=== PATIENT | female | born 1940 | race Caucasian/White ===

== ENCOUNTER 2017-08-25 12:29 | Inpatient (IN) ==
[2017-08-25] MEDS ORDERED: ALBUTEROL/IPRATROPIUM 2.5mg-0.5mg/3ml NEB AEROSOL PRN (12:47)
--- OUTSIDE RECORDS SUMMARY | 2017-08-25 13:16 | External Medical Summary ---
:1940 Author Organization eClinicalWorks Care Team Providers Name Role Phone Orville Mendoza Provider Role Unavailable Allergies, Adverse Reactions, Alerts Substance Reaction Event Type Minocycline Angioneurotic edema Drug Allergy Sulfa-Trimeth Angioneurotic edema Drug Allergy Penicillin Diarrhea Drug Allergy Metformin HCl CHF Drug Allergy Problems Problem Type Condition Code Onset Dates Condition Status Problem Obesity, unspecified 278.00 Active Problem Hypertension 401.9 Active Problem Non-Hodgkin's lymphoma, unspecified 202.80 Active site, extranodal and solid organ sites Problem Angina Pectoris 413.9 Active Problem s/p stenting, coronary V45.82 Active Problem Cardiomyopathy, Ischemic 414.8 Active Problem Subclavian steal syndrome 435.2 Active Problem Tobacco Addiction 305.1 Active Problem Reflux esophagitis 530.11 Active Problem Carotid Disease 437.9 Active Assessment Subclavian steal syndrome 435.2 Active Assessment Carotid Disease 437.9 Active Assessment s/p stenting, coronary V45.82 Active Assessment Cardiomyopathy, Ischemic 414.8 Active Problem Venous Insufficiency 459.81 Active Problem Hypothyroidism 244.9 Active Assessment Coronary Artery Disease 414.01 Active Problem Diabetes Mellitus, Type II, Not 250.00 Active Stated As Uncontrolled Problem Hyperlipidemia 272.4 Active Problem Coronary Artery Disease 414.01 Active Medications Medication Code Code Instructions Start End Date Status Dosage System Date Levothyroxine [facility] 40015-78 100 micrograms July 21, 1 tablet Sodium 49-07 Orally qd 2013 Tums [facility] 93265-52 500 MG Orally 2 tablets 70-03 [place], [place] [address]-64 25 MG Orally Bid 1 tablet Tartrate 18- [place] [address]-30 Orally qd 1 capsule 041 [place] [address]-40 20 MG Orally Bid July 21, 1 capsule 02-05 Insulin ND 0 [place] [address]-73 81 MG Orally qd 1 tablet 74-68 [place] [address]-91 40 MG Orally At 1 tablet 55-10 [place] [address]-73 400 MG Orally qd May 06, 1 tablet 12-27 Lisinopril [facility] 15084-31 10 MG Orally Bid 1 tablet Clopidogrel [facility] 05001-00 75 MG Orally qd Mar 29, 1 tablet Bisulfate 2012 Ferrous Sulfate [facility] 98010-64 325 mg Orally qd May 19, 1 tablet 50-2013 Ascorbic Acid [facility] 85546-95 1000 MG Orally 1 tablet - qd Procedures Procedure Coding System Code Date Office Visit, Est Pt., Level 4 CPT-4 41736 Dec 21, 2014 Vital Signs Date/Time: Dec 21, 2014 BMI 31.95 Index Weight 163.6 lbs Height 60 in Cardiac Monitoring Heart Rate 80 /min Oximetry 94%RA % Blood Pressure Diastolic 60 mm Hg Blood Pressure Systolic 108 mm Hg Results No Known Results Summary Purpose eClinicalWorks Submission
--- OUTSIDE RECORDS SUMMARY | 2017-08-25 13:16 | External Medical Summary ---
[...] End Date Status Dosage System Date Levothyroxine [facility] 34442-96 100 micrograms July 21, 1 tablet Sodium 49-07 Orally qd 2013 Tums [facility] 62099-60 500 MG Orally 2 tablets 70-03 [place], [place] [address]-77 25 MG Orally Bid 1 tablet Tartrate 18- [place] [address]-43 Orally qd 1 capsule 041 [place] [address]-50 20 MG Orally Bid July 21, 1 capsule 02-05 Insulin ND 0 [place] [address]-06 81 MG Orally qd 1 tablet 74-[place] [address]-39 40 MG Orally At 1 tablet 55-10 [place] [address]-64 400 MG Orally qd May 06, 1 tablet 12-27 Lisinopril [facility] 53414-35 10 MG Orally Bid 1 tablet Clopidogrel [facility] 31540-38 75 MG Orally qd Mar 29, 1 tablet Bisulfate 2012 Ferrous Sulfate [facility] 14840-03 325 mg Orally qd May 19, 1 tablet 50-2013 Ascorbic Acid [facility] 79385-63 1000 MG Orally 1 tablet - qd Procedures Procedure Coding System Code Date Office Visit, Est Pt., Level 4 CPT-4 40793 Dec 21, 2014 Vital Signs Date/Time: Dec 21, 2014 BMI 31.95 Index Weight 163.6 lbs Height 60 in Cardiac Monitoring Heart Rate 80 /min Oximetry 94%RA % Blood Pressure Diastolic 60 mm Hg Blood Pressure Systolic 108 mm Hg Results No Known Results Summary Purpose eClinicalWorks Submission
--- OUTSIDE RECORDS SUMMARY | 2017-08-25 13:16 | External Medical Summary ---
:1940 Author Organization eClinicalWorks Care Team Providers Name Role Phone Orville Mendoza Provider Role Unavailable Allergies No Known Allergies Problems Problem Type Condition Code Onset Dates [...] 530.11 Active Problem Carotid Disease 437.9 Active Problem Venous Insufficiency 459.81 Active Problem Hypothyroidism 244.9 Active Problem Diabetes Mellitus, Type II, Not 250.00 Active Stated As Uncontrolled Problem Hyperlipidemia 272.4 Active Problem Coronary Artery Disease 414.01 Active Medications No Known Medications Results No Known Results Summary Purpose eClinicalWorks Submission
--- OUTSIDE RECORDS SUMMARY | 2017-08-25 13:16 | External Medical Summary ---
:1940 Author Organization eClinicalWorks Care Team Providers Name Role Phone Kelly, Orville Provider Role Unavailable Allergies No Known Allergies [...] Artery Disease 414.01 Active Medications Medication Code System Code Instructions Start End Date Status Dosage Date Nitroglycerin [facility] 43832-273 0.4 MG Sublingual 1 tablet 8-13 prn chest under discomfort tongue Results No Known Results Summary Purpose eClinicalWorks Submission
--- OUTSIDE RECORDS SUMMARY | 2017-08-25 13:16 | External Medical Summary | Continuity of Care Document ---
:1940 Author Organization [facility] Allergies Active Description Code Type Severity Reaction Onset Reported/ Identified Relationship Clinical to Patient Status Yes BACTRIM 51695 Drug Moderate DIFFicult 28390 Aller y 1 gy swallowin g Yes BACTRIM 27926 Drug Moderate N/A 17469 Aller 1 gy Yes METFORMIN Drug Moderate gi upset Aller gy Yes METFORMIN Drug Moderate N/A Aller gy Yes MINOCIN 48896 Drug Moderate N/A 34588 Aller 8 gy Yes MINOCIN 28417 Drug Moderate trouble 39599 Aller swallowin 8 gy g Yes CIPRO 25437 Drug Mild gi upset 16950 Aller and 2 gy diarrhea Yes CIPRO 38411 Drug Mild N/A 58109 Aller 2 gy Yes metformin metfo Drug Moderate DIARRHEA 03/13/2011 rmin Aller AND RENAL gy Yes Penicillins Penic Drug Unknown U 03/13/2011 illin Aller s gy Yes minocycline minoc Drug Mild THROAT 08/15/2011 yclin Aller SWELLING e gy Yes Sulfa Sulfa Drug Mild THROAT 08/15/2011 (Sulfonamide (Sulf Aller SWELLING Antibiotics) onami gy de Antib iotic s) Yes metformin Aller M N/A 12/30/2016 gy Yes minocycline Aller Unknown N/A 12/30/2016 gy Yes Sulfa Aller Unknown N/A 12/30/2016 (Sulfonamide gy Antibiotics) Yes sulfamethoxa Aller M N/A 12/30/2016 zole gy Yes trimethoprim Aller M N/A 12/30/2016 gy Medications Medication Packaging Start Date Stop Date Route Dosage Sig ORAL 08/30/2011 ORAL 50 LACTINEX 6 four times daily PROAIR Inhalation 07/30/2012 Inhalation 8.5 HFA 5 EVERY SIX HOURS ORAL 09/10/2013 ORAL 90 FERROUS SULFATE 5 daily ORAL 03/11/2014 ORAL 30 LEVOTHYROXINE 5 daily SODIUM ORAL 04/05/2014 ORAL 180 OMEPRAZOLE 5 twice daily Oral 06/10/2014 Oral 30 SIMVASTATIN 5 Oral 06/10/2014 Oral 180 METOPROLOL 5 TARTRATE ORAL 06/10/2014 ORAL 90 MAGNESIUM OXIDE daily ORAL 06/27/2014 ORAL 30 TRAMADOL HCL 6 4 times a day ORAL 07/04/2014 ORAL 18 PREDNISONE (SRI) 5 Oral 07/04/2014 Oral 180 OMEPRAZOLE 6 ORAL 07/04/2014 ORAL 90 MAGNESIUM OXIDE 5 daily ORAL 08/09/2014 ORAL 90 BUMETANIDE once each day Oral 09/13/2014 Oral 30 SIMVASTATIN 5 PROAIR Inhalation 10/13/2014 Inhalation 9 HFA ORAL 10/13/2014 ORAL 30 LEVOTHYROXINE 5 daily SODIUM Oral 11/10/2014 Oral 30 SIMVASTATIN 5 Oral 11/10/2014 Oral 180 METOPROLOL 5 TARTRATE Oral 11/21/2014 Oral 30 LEVOTHYROXINE 6 SODIUM Oral 11/21/2014 Oral 90 FERROUS SULFATE 5 Oral 02/23/2015 Oral 90 SIMVASTATIN 6 Oral 03/23/2015 Oral 180 METOPROLOL 6 TARTRATE Oral 04/03/2015 Oral 90 MAGNESIUM OXIDE 6 Oral 04/03/2015 Oral 90 FERROUS SULFATE 6 ORAL 04/17/2015 ORAL 6 ZITHROMAX 6 ORAL 04/17/2015 ORAL 90 MICRO-K 6 daily Oral 04/17/2015 Oral 90 FERROUS SULFATE Oral 04/27/2015 Oral 180 OMEPRAZOLE Oral 07/11/2015 Oral 180 METOPROLOL TARTRATE Oral 07/19/2015 Oral 90 POTASSIUM CHLORIDE ER Oral 07/19/2015 Oral 90 MAGNESIUM OXIDE Oral 07/19/2015 Oral 90 FERROUS SULFATE Oral 07/27/2015 Oral 30 LEVOTHYROXINE SODIUM Oral 07/27/2015 Oral 90 FERROUS SULFATE Oral 08/17/2015 Oral 90 SIMVASTATIN Imdur 09/09/2016 PO 30 mg 09/09/2016 PO 10 mg Prinivil 09/09/2016 Sublingual 0.4 mg Nitroglycerin 09/09/2016 PO 75 mg Clopidogrel 09/09/2016 PO 250 mg Azithromycin .COMPLEX 09/09/2016 Inhalation 6.7 gm Proventil Hfa 90mcg 09/09/2016 Sub-Q 100 Humalog Kwikpen unit/ml U-100 09/09/2016 Sub-Q 100 Basaglar Kwikpen unit/ml U-100 09/16/2016 PO 300 mg Cefdinir Q12H Bumex 10/14/2016 PO 1 mg Tab DAILY 10/14/2016 PO 10 meq Potassium Chloride DAILY Zocor 11/28/2016 PO 40 mg .QD 12/30/2016 PO 10 mg Prednisone .COMPLEX 01/29/2017 PO 100 mcg Synthroid DAILY 02/03/2017 PO 20 mg Prilosec BID 02/26/2017 PO 50 mg Lopressor BID 03/06/2017 TOP 15 gm Nystatin TID 03/06/2017 TOP 15 gm Triamcinolone BID Acetonide 03/06/2017 Inhalation 6.7 gm Proventil Hfa Q6H 90mcg 03/11/2017 PO 325 mg Ferrous Sulfate DAILY Problems Date Dx Attending Type Code Diagnosis Diagnosed By Coded 07/26/2014 Dolores HANNA, Eiad A 787.20 B 09/09/2016 TATUM MARTINEZ DO J40 Bronchitis, not TATUM MARTINEZ DO specified as acute or chronic 09/09/2016 TATUM MARTINEZ DO J44.0 Chronic obstructive TATUM MARTINEZ DO pulmonary disease with acute lower respiratory infection 09/09/2016 TATUM MARTINEZ DO R05 Cough TATUM MARTINEZ DO 09/16/2016 TATUM MARTINEZ DO J18.9 Pneumonia, TATUM MARTINEZ DO unspecified organism 12/30/2016 TATUM MARTINEZ DO M54.5 Low back pain TATUM MARTINEZ DO 12/30/2016 TATUM MARTINEZ DO T63.301A Toxic effect of TATUM MARTINEZ DO unspecified spider venom, accidental (unintentional), initial encounter 12/30/2016 TATUM MARTINEZ DO Z23 Encounter for TATUM MARTINEZ DO immunization Procedures Code [place] [address] [place] SOFT [place], [facility] 12/15/2015 TISSUE NECK WITH CONTRAST [address] CT THORAX LAW, [facility] 12/15/[address] ABD & LAWN, [facility] 12/15/2015 PELVIS WITH CONTRAST [address]15[address] CT SOFT [place], [facility] 12/11/2016 TISSUE NECK WITH CONTRAST [address] CT THORAX [place], [facility] 12/11/[address] ABD & LAWN, [facility] 12/11/2016 PELVIS WITH CONTRAST Results Test Result Range L749.2001 - 12/31/16 11:13 NA - Sodium - AMS 141 mEq/L 135-144 Potassium - AMS 4.1 mEq/L 3.5-5.2 Chloride- AMS 106 mEq/L 99-111 CO2 - Carbon Dioxide-AMS 27 mEq/L 22-31 Anion Gap - AMS 8 mEq/L 3-20 BUN - Blood Urea Nitrogen -AMS 15 mg/dL 10-20 Creatinine - AMS 0.89 mg/dL 0.57-1.11 Glomerular Filtration Rate-AMS > 60 mL/min >60 Glucose - AMS 86 mg/dL 70-99 Calcium - AMS 8.9 mg/dL 8.4-10.2 Bilirubin,Total - AMS 0.4 mg/dL 0.2-1.2 Alkaline Phosphatase - AMS 112 U/L 40-150 AST - Aspartate Amino Transfer 10 U/L 5-34 ALT - AMS 4 U/L 0-55 TP - Total Protein - AMS 7.1 g/dL 6.0-7.6 Albumin Level - AMS 3.2 g/dL 3.4-4.8 Globulin - AMS 3.9 g/dL 1.8-4.0 L908.3165 - 12/31/16 11:13 Free T4 (Free Thyroxine)-AMS 1.2 ng/dL 0.7-1.5 L750.9150 - 12/31/16 11:13 TSH - Thyroid Stim Horm-AMS 1.91 uIU/mL 0.35-4.94 Encounters ACCT No. Visit Discharge Status Pt. Type Provider Facility Loc./Unit Complaint Date/Time [id number] 07/26/2014 07/26/2014 DIS Outpatient Dolores AndresRAD 75 07:05:00 07:05:00 , [facility] [id number] 11/21/2010 Inpatient 94 01:42:00 [id number] 03/29/2010 Inpatient 13 00:36:00 Alida 07/26/2014 ACT Document 07:05:46 Registrati on [id number] 11/08/2015 11/08/2015 CLS Outpatient Gagandeep, 1 10:12:08 23:59:59 Stevie Brown [id number] 03/06/2017 03/06/2017 DIS Outpatient JUAN DO, Medical Med refill 95 14:02:00 15:41:00 TATUM [place] [facility] [id number] 12/31/2016 12/31/2016 DIS Outpatient JUAN PEDERSEN, Medical LAB FOR 45 10:59:00 11:22:00 TATUM [place] [id number] 12/30/2016 12/30/2016 DIS Outpatient JUAN PEDERSEN, Medical 2 spider 13 10:26:00 11:27:00 TATUM [place] bites/ arm [place] and [place] [id number] 09/16/2016 09/16/2016 DIS Outpatient JUAN PEDERSEN, AMB.MPVC pneumonia 47 11:10:00 12:02:00 TATUM follow up [id number] 09/09/2016 09/09/2016 DIS Outpatient JUAN PEDERSEN, Medical cough and 78 14:16:00 15:47:00 TATUM [place] [facility] breathe [place] [id number] 08/15/2015 08/15/2015 DIS Outpatient 09:41:32 09:41:32 [id number] 12/16/2016 DIS Document 00:00:00 Registrati on [id number] 12/20/2015 DIS Document 00:00:00 Registrati on
[2017-08-25 13:47] VITALS: BMI 32.4
--- NOTE | 2017-08-25 14:00 | History & Physical Report ---
History of Present Illness Date: 08/25/17 Chief complaint: Hypoxia, back pain HPI: Ellen is a 77 yr old female who presented to see her PCP Dr Sapp today for evaluation on chronic back pain. At time of office visit she was found to be hypoxic at 81%. Chest X-ray was obtained that did not show acute infiltrates. Lumbar back xray shows moderate DDD otherwise unremarkable. Given hypoxia the hospitalists service was contacted and accepted patient for observation for further evaluation and treatment. Ellen is seen and examined at time of admission to the medical unit. She is placed on room air on arrival and found to be hypoxic at 85%. Oxygen is titrated up and she requires 5 liters to maintain saturations over 90%. Detailed history taken revels that she has been more fatigued over the past 2-3 weeks. She reports she is unable to get around due to the fatigue as well as shortness of breath. She indicates that during this time she has difficulty finding her words and describes aphasia. She also reports she has not been taking her "water pill" because she does not have the energy to ambulate to the bathroom. She is smoking less over the past few week also due to lack of motivations. Review of Systems All systems PM: 10-point ROS was reviewed, no additional remarkable complaints except - Constitutional Constitutional: Present: anorexia, fatigue - Respiratory Respiratory: Present: cough, dyspnea, dyspnea on exertion - Integumentary/Breasts Integumentary: Present: swelling (bilateral lower ext) Past Medical History Medical History: Medical History (Last Reviewed 08/25/17 @ 14:11 by Emilee Ng APRN) CHF (congestive heart failure) DM2 (diabetes mellitus, type 2) Gastroesophageal reflux disease HTN (hypertension) Hyperlipidemia Non Q wave myocardial infarction Non-Hodgkin lymphoma Obesity Otitis externa Tobacco abuse Medical History Updates: CAD with bypass Surgical History: hysterectomy 1967. Cholecystectomy. appendectomy. tonsillectomy. carotid endarterectomy - 2004. CABG. 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 Oncologist- Dr Mattar Medications Home Medications Medication Instructions Recorded Confirmed Type Humalog KwikPen (insulin lispro) 5 units SQ WM 90 Days #15 09/09/16 08/25/17 History 100 unit/mL SQ PEN Lantus Solostar (insulin glargine) 15 units SQ HS 84 Days #15 09/09/16 08/25/17 History 100 unit/mL (3 mL) PEN Nitrostat (nitroglycerin) 0.4 mg 1 tab SL PRN PRN 6 Days #25 09/09/16 08/25/17 History sublingual tablet Plavix (clopidogrel) 75 mg tablet 75 mg PO DAILY 90 Days #90 09/09/16 08/25/17 History isosorbide mononitrate ER 30 mg 1 tab PO DAILY 90 Days #90 09/09/16 08/25/17 History tablet,extended release 24 hr lisinopril 10 mg tablet 1 tab PO DAILY 90 Days #180 09/09/16 08/25/17 History Klor-Con Sprinkle (potassium 10 meq PO DAILY #90 cap 10/14/16 08/25/17 Rx chloride ER) 10 mEq capsule nystatin 100,000 unit/gram topical 1 applicatio TOP TID #60 each 03/06/17 Rx powder triamcinolone acetonide 0.1 % 1 applicatio TOP BID #30 g 03/06/17 08/25/17 Rx topical ointment Lopressor (metoprolol tartrate) 50 50 mg PO BID #180 tab 06/16/17 08/25/17 Rx mg tablet bumetanide 1 mg tablet 1 mg PO DAILY #90 tab 07/28/17 08/25/17 Rx Prilosec (Omeprazole) 20 mg 20 mg PO BID #60 cap 08/11/17 08/25/17 Rx capsule,delayed release levothyroxine 100 mcg tablet 100 mcg PO DAILY #30 tab 08/11/17 08/25/17 Rx Ferrous Sulfate 325 mg PO DAILY 08/25/17 08/25/17 History Simvastatin [Zocor] 40 mg PO DAILY 08/25/17 08/25/17 History Allergies Allergy/AdvReac Type Severity Reaction Status Date / Time metformin Allergy Mild Verified 08/25/17 11:43 sulfamethoxazole Allergy Mild Verified 08/25/17 11:43 [From Bactrim] trimethoprim [From Bactrim] Allergy Mild Verified 08/25/17 11:43 minocycline Allergy Unknown Verified 08/25/17 11:43 Sulfa (Sulfonamide Allergy Unknown Verified 08/25/17 11:43 Antibiotics) Exam Vital Signs: Temperature 96.4 F L 08/25/17 13:43 Pulse Rate 95 08/25/17 13:43 Respiratory Rate 20 08/25/17 13:43 Blood Pressure 125/55 08/25/17 13:43 Pulse Oximetry 91 08/25/17 13:43 Height/Weight/BMI: Height 1.52 m Weight 75.4 kg Body Mass Index 32.4 - Constitutional Present: mild distress, well nourished, well developed - Routine HEENT Exam Eye: Present: EOMI ENT: Present: mucous membranes moist, dentition normal - Routine Respiratory Exam Present: respiratory distress, wheezes, crackles - Routine Cardiovascular Exam Present: RRR, S1, S2. Absent: murmur - Routine Abdominal Exam Present: soft, normoactive bowel sounds, non distended. Absent: tenderness - Routine Extremities Exam Present: edema (trace bilateral lower) - Routine Skin Exam Present: intact, dry, warm - Routine Neurological Exam Present: alert, oriented X3, CN II-XII intact, moving all extremities - Routine Psychiatric Exam Present: normal affect, normal thought process, cooperative Results - Labs CBC & Chem 7: 08/25/17 14:11 08/25/17 14:11 Assessment and Plan Assessment and Plan: Impression Acute respiratory failure with hypoxia- Requiring 5 liters on admission Suspect Acute exacerbation of CHF COPD with acute exacerbation Aphasia- Intermittently COPD CAD with Hx DC Type 2 DM HTN Hyperlipidemia Non-Hodgkin lymphoma Gastroesophageal reflux disease Obesity Chronic tobacco dependency Cardiopulmonary debility Plan Initially patient was admitted as outpatient observation however following examination and level of hypoxia will change to inpatient status given that she is requiring 5 liters to maintain oxygen saturations. Further clinical workup on admission- CBC, AMP, Mag, Troponin, UA, Respiratory panel, EKG Given suspect of fluid overload accompanied with fatigue and dyspnea will obtain ECHO for cardiac evaluation Will need to initiate diuretics once electrolytes and renal function results are reviewed. Suspect fluid overload. Obtain Ct head to rule out ischemia given aphasia. Suspect this could be multifactorial- ?hypoxia, ?electrolyte abnormalities Obtain sputum culture Consultation to RT for acapella and tobacco cessation consultation Monitor Accu checks SCD to bilateral lower ext for DVT prophylaxis Patient does wish to be a DNR and this order is written Will discuss further orders and plan of care with attending, Dr Alvarado At time of discharge medical care is to return to PCP Dr Sapp DVT Prophylaxis: SCD's, Lovenox Resuscitation Status: Do Not Resuscitate - Time spent with patient Time with patient PN: 35 minutes - Physician Narrative Physician: Jean Carlos Alvarado MD Narrative: Date: 08/25/17 Time: 1624 Have independently interviewed and examined pt. Chart reviewed. Case discussed with Dr Sapp and my BIOLOGICAL TECHNICAL OFFICER. Care plan developed with my supervision; agree with above. Reports increasing tiredness/fatigue over the past several weeks. Not able to be as active as she would like or needs to be. Shortness of breath increasing. Winded at rest, and more so with activities. Does report increased episodes of chest pain, requiring NTG use. Not having increased edema. Indeed, to tired and weak over the past 2-3 days to take Bumex. Notes nasal congestion and post nasal drainage. Appetite decreased. No nausea. Bowels variable. See in clinic - room air saturations decrease to low 80s. Patient visibly SOA. CXR done not showing acute changes from prior, but air bronchograms and pulm vascular congestion is present. Arrangements made for hospitalization [place] [facility] [place] improve respiratory status. Anticipate greater than 2 midnights of care needed. Lungs: decreased breath sound, tight and congested. Diffuse crackles and inspiratory/expiratory wheezes. Mild resp distress at rest despite O2 therapy. CV: regular without murmur. AB: soft nt/nd BS decreased EXT: trace BLE MSE: awake alert Gen: appears very weak and tired Plan: Will change admission status to inpatient secondary to hypoxia and significant difficulty breathing - anticipate greater than 2 midnights of care needed. Feel are dealing with both Cardiac exacerbation and COPD exacerbation. Increase Bumex to 1mg IV BID to help motivate fluid. ECHO to assess cardiac status. Serial troponin. Will start Neb treatment, Solu-Medrol, acapella, Mucinex DM to help lungs. Supplemental O2. Lorazepam prn anxiety/air hunger. Tobacco cessation. SCD and Lovenox for DVT prevention. PT/OT due to cardiopulmonary debility. Check TSH secondary to hypothyroidism and fatigue. Monitor blood sugars, anticipating elevation secondary to steroids. Monitor lab secondary to medication use. Care to return to Dr Sapp at time of discharge from [facility] Hospital Course Summary Disclaimer: The visit summary below is not to be considered part of the above Progress Note. Hospital Course: 08/25/17 Admission Initially patient was admitted as outpatient observation however following examination and level of hypoxia will change to inpatient status given that she is requiring 5 liters to maintain oxygen saturations. Further clinical workup on admission- CBC, CMP, Mag, Troponin, UA, Respiratory panel, EKG. Given suspect of fluid overload accompanied with fatigue and dyspnea will obtain ECHO for cardiac evaluation. Serial enzymes and tele. Will need to initiate diuretics once electrolytes and renal function results are reviewed. Suspect fluid overload. Initiate Bumex 1mg IV BID. Obtain Ct head to rule out ischemia given aphasia. Suspect this could be multifactorial- ?hypoxia, ?electrolyte abnormalities. Obtain sputum culture and respiratory panel. Start Neb treatments of DuoNeb QID & prn, Budesonide BID, Solu-Medrol 62.5mg IV q 6hrs, Mucinex DM BID, Nasal Saline QID, and Ricola prn. Consultation to RT for acapella and tobacco cessation consultation. PT/OT consultation for cardiopulmonary debility. Monitor Accu checks. SCD to bilateral lower ext and Lovenox for DVT prophylaxis. Patient does wish to be a DNR and this order is written. At time of discharge medical care is to return to PCP Dr Sapp.
--- NOTE | 2017-08-25 14:53 | CT Scan Report ---
Indication: aphagia PROCEDURE: CT head/brain wo con: Encounter: Initial Comparison: None. Findings: There is mild prominence of the ventricles and sulci compatible with cortical atrophy. There is no mass, mass effect, or midline shift. No evidence for intracranial hemorrhage. No intra or extra-axial fluid collections. No evidence for depressed skull fracture. The included portions of the sinuses are clear. IMPRESSION: Mild cortical atrophy. No evidence for acute cortical infarct, intracranial hemorrhage, or mass. .
[2017-08-25] MEDS ORDERED: BISACODYL 10 MG SUPPOSITORY RECTALLY PRN (14:59)
[2017-08-25] MEDS: SALINE FLUSH 10ml SYRINGE IV PRN ×2 (15:58→17:13)
[2017-08-25] MEDS: ALBUTEROL/IPRATROPIUM 2.5mg-0.5mg/3ml NEB AEROSOL SCH ×2 (16:15→19:00)
[2017-08-25] MEDS ORDERED: MENTHOL COUGH DROPS (RICOLA) MM PRN (16:15)
[2017-08-25] MEDS: BUDESONIDE INH.SOLN 0.5mg/2ml NEB AEROSOL SCH ×2 (16:15→19:00)
[2017-08-25] MEDS ORDERED: ACETAMINOPHEN 325 MG TABLET PO PRN (16:19)
[2017-08-25] MEDS ORDERED: NITROGLYCERIN 0.4 MG SUBLINGUAL TABLET SL PRN (16:20)
[2017-08-25] MEDS: METHYLPREDNISOLONE SOD SUCC 125mg/2ml INJECTION IVP SCH ×2 (17:14→21:35)
[2017-08-25] MEDS: ENOXAPARIN 40 MG/0.4 ML INJECTION SQ SCH (17:18)
[2017-08-25] MEDS: OMEPRAZOLE 20 MG CAPSULE PO SCH (17:22)
[2017-08-25] MEDS: SALINE 0.65% NASAL SPRAY 44 ML BOTTLE EA NOSTRIL SCH ×2 (17:38→21:41)
[2017-08-25] MEDS ORDERED: INSULIN GLARGINE 100unit/ml INJECTION SQ SCH (21:00)
[2017-08-25] MEDS: SIMVASTATIN 40 MG TABLET PO SCH (21:34)
[2017-08-25] MEDS: GUAIFENESIN/D-METHORPHAN 600mg/30mg TABLET PO SCH (21:34)
[2017-08-26] MEDS: METHYLPREDNISOLONE SOD SUCC 125mg/2ml INJECTION IVP SCH ×5 (03:52→21:35)
[2017-08-26] MEDS: LEVOTHYROXINE 100 MCG TABLET PO SCH (06:09)
[2017-08-26] MEDS: OMEPRAZOLE 20 MG CAPSULE PO SCH ×2 (06:10→18:16)
[2017-08-26] MEDS: BUDESONIDE INH.SOLN 0.5mg/2ml NEB AEROSOL SCH ×2 (07:55→18:58)
[2017-08-26] MEDS: ALBUTEROL/IPRATROPIUM 2.5mg-0.5mg/3ml NEB AEROSOL SCH ×4 (07:55→18:59)
[2017-08-26] MEDS: ENOXAPARIN 40 MG/0.4 ML INJECTION SQ SCH (09:05)
[2017-08-26] MEDS: FERROUS SULFATE 324 MG TABLET PO SCH (09:05)
[2017-08-26] MEDS: CLOPIDOGREL 75 MG TABLET PO SCH (09:05)
[2017-08-26] MEDS: ISOSORBIDE MONONITRATE ER 30 MG TABLET PO SCH (09:07)
[2017-08-26] MEDS: GUAIFENESIN/D-METHORPHAN 600mg/30mg TABLET PO SCH ×2 (09:12→20:26)
[2017-08-26] MEDS: LISINOPRIL 10 MG TABLET PO SCH (09:15)
[2017-08-26] MEDS: SALINE 0.65% NASAL SPRAY 44 ML BOTTLE EA NOSTRIL SCH ×4 (09:17→20:36)
--- NOTE | 2017-08-26 10:51 | Progress Note ---
- Date 08/26/17 Subjective: Ellen feels like she took a backward step today. She feels worse. She is shakey and feels fuzzy - partly wonders if that's d/t steroids. She continues to cough but isn't brining anything up. At rest, she breathes easily but walking to the bathroom proves difficult because of dyspnea. She denies n/v or abdominal pain but doesn't have much of an appetite. She has had very rare episodes of choking a little on thin liquids - but this has been quite while ago and she denies any recent aspiration. She is very worried about her recovery b/c of her recollection of having severe "double pneumonia" several years ago requiring a 30-day hospitalization. Objective Vital signs: Temperature 97.2 F 08/26/17 07:54 Pulse Rate 78 08/26/17 07:54 Respiratory Rate 24 08/26/17 07:55 Blood Pressure 150/62 H 08/26/17 07:54 Pulse Oximetry 94 08/26/17 07:55 Height/Weight/BMI: Height 1.52 m Weight 75.3 kg Body Mass Index 32.4 - Constitutional Present: well nourished, well developed, obese - Routine HEENT Exam Head: Present: normocephalic Eye: Present: PERRL. Absent: conjunctival icterus, scleral injection ENT: Present: oropharynx clear - Routine Respiratory Exam Present: decreased breath sounds, rales - Routine Cardiovascular Exam Present: RRR, S1, S2 - Routine Abdominal Exam Present: soft, normoactive bowel sounds, non distended, non tender - Routine Extremities Exam Present: clubbing, edema (trace BLE), pulses intact Comments: all fingertips are erythematous - pt reports this is chronic & sometimes they turn blue - Routine Musculoskeletal Exam Musculoskeletal: Absent: no clubbing or cyanosis - Routine Skin Exam Present: intact, dry, warm - Routine Neurological Exam Present: alert, oriented X3, moving all extremities, normal speech - Routine Psychiatric Exam Present: normal affect, normal thought process, cooperative Results - Labs CBC & Chem 7: 08/26/17 05:21 08/26/17 05:21 Assessment and Plan Assessment and Plan: Impression Acute respiratory failure with hypoxia- Requiring 5 liters on admission Suspect Acute exacerbation of CHF COPD with acute exacerbation Human metapneumovirus infection Aphasia- Intermittently COPD CAD with Hx [place] Type 2 DM HTN Hyperlipidemia Non-Hodgkin lymphoma Gastroesophageal reflux disease Obesity Chronic tobacco dependency Cardiopulmonary debility Plan Trop neg x3. Echo pending. Continue diuresis - still requiring 6L O2. Weight essentially unchanged. Start tracking I&O. Renal function stable with BUN 37 and cr 1.3. Tonight will reduce frequency of Solu-Medrol to BID. Cont DuoNeb/Pulmicort, activity as able. Precautions & supportive care for HMV. Head CT negative for acute findings. Hyperglycemia - exacerbated by steroids. Will increase Lantus to 17U and add SSI. Leukopenia - suspect chronic d/t hx NHL. PT/OT consulted. DVT Prophylaxis: Lovenox GI Prophylaxis: Protonix Resuscitation Status: Do Not Resuscitate - Physician Narrative Physician: Jean Carlos Alvarado MD Narrative: Date: 08/26/17 Time: 1899 Have independently interviewed and examined pt. Chart reviewed. 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 Care plan developed with my supervision; agree with above. Not feeling as well this morning-more fuzzy and spacey to head. Breathing about the same-still SOA and slight cough. No nausea. Appetite fair. Tired and weak in general. Lungs: decreased bilaterally, slightly improved air movement. CV: regular AB: soft nt/nd MSE: awake alert, psychomotor slowing. Plan: Continue with supportive care. Decrease Solu-Medrol. Continue to work with diuresis. Encourage therapy as able. Monitor lab. Hospital Course Summary Disclaimer: The visit summary below is not to be considered part of the above Progress Note. Hospital Course: 08/25/17 Admission Initially patient was admitted as outpatient observation however following examination and level of hypoxia will change to inpatient status given that she is requiring 5 liters to maintain oxygen saturations. Further clinical workup on admission- CBC, CMP, Mag, Troponin, UA, Respiratory panel, EKG. Given suspect of fluid overload accompanied with fatigue and dyspnea will obtain ECHO for cardiac evaluation. Serial enzymes and tele. Will need to initiate diuretics once electrolytes and renal function results are reviewed. Suspect fluid overload. Initiate Bumex 1mg IV BID. Obtain Ct head to rule out ischemia given aphasia. Suspect this could be multifactorial- ?hypoxia, ?electrolyte abnormalities. Obtain sputum culture and respiratory panel. Start Neb treatments of DuoNeb QID & prn, Budesonide BID, Solu-Medrol 62.5mg IV q 6hrs, Mucinex DM BID, Nasal Saline QID, and Ricola prn. Consultation to RT for acapella and tobacco cessation consultation. PT/OT consultation for cardiopulmonary debility. Monitor Accu checks. SCD to bilateral lower ext and Lovenox for DVT prophylaxis. Patient does wish to be a DNR and this order is written. At time of discharge medical care is to return to PCP Dr Sapp. 08/26 Trop neg x3. Echo pending. Continue diuresis - still requiring 6L O2. Weight essentially unchanged. Start tracking I&O. Renal function stable with BUN 37 and cr 1.3. Tonight will reduce frequency of Solu-Medrol to BID. Cont DuoNeb/Pulmicort, activity as able. Precautions & supportive care for HMV. Head CT negative for acute findings. Hyperglycemia - exacerbated by steroids. Will increase Lantus to 17U and add SSI. Leukopenia - suspect chronic d/t hx NHL. PT/OT consulted.
[2017-08-26] MEDS ORDERED: INSULIN ASPART 100unit/ml INJECTION SQ PRN (11:01)
[2017-08-26] MEDS ORDERED: INSULIN GLARGINE 100unit/ml INJECTION SQ SCH (11:15)
[2017-08-26] MEDS ORDERED: INSULIN ASPART 100unit/ml INJECTION SQ ONE (12:43)
[2017-08-26] MEDS: INSULIN ASPART 100unit/ml INJECTION SQ PRN ×2 (18:16→20:27)
[2017-08-26] MEDS: SIMVASTATIN 40 MG TABLET PO SCH (20:26)
[2017-08-26] MEDS: INSULIN GLARGINE 100unit/ml INJECTION SQ SCH (20:28)
[2017-08-27] MEDS: INSULIN ASPART 100unit/ml INJECTION SQ PRN ×4 (05:45→20:04)
[2017-08-27] MEDS: OMEPRAZOLE 20 MG CAPSULE PO SCH ×2 (05:46→17:53)
[2017-08-27] MEDS: LEVOTHYROXINE 100 MCG TABLET PO SCH (05:46)
[2017-08-27] MEDS: FERROUS SULFATE 324 MG TABLET PO SCH (08:12)
[2017-08-27] MEDS: GUAIFENESIN/D-METHORPHAN 600mg/30mg TABLET PO SCH ×2 (08:12→20:05)
[2017-08-27] MEDS: CLOPIDOGREL 75 MG TABLET PO SCH (08:13)
[2017-08-27] MEDS: ISOSORBIDE MONONITRATE ER 30 MG TABLET PO SCH (08:14)
[2017-08-27] MEDS: LISINOPRIL 10 MG TABLET PO SCH (08:14)
[2017-08-27] MEDS: METHYLPREDNISOLONE SOD SUCC 125mg/2ml INJECTION IVP SCH ×2 (08:15→20:04)
[2017-08-27] MEDS: ENOXAPARIN 40 MG/0.4 ML INJECTION SQ SCH (08:18)
[2017-08-27] MEDS: SALINE 0.65% NASAL SPRAY 44 ML BOTTLE EA NOSTRIL SCH ×4 (08:20→20:06)
--- NOTE | 2017-08-27 09:07 | Echocardiogram ---
DATE 08/26/2017 INDICATION Lower extremity edema. Dyspnea ? TECHNICAL QUALITY: Technically good 2D, M-mode and Doppler echocardiographic images were submitted for interpretation. FINDINGS 1. CARDIAC CHAMBERS. All cardiac chamber measurements are normal, although both atria appear elongated, are probably mildly enlarged. Volume measurements were not performed. Aortic root diameter is normal. RV size and contractility appear normal. 2. LV FUNCTION. Analysis reveals mildly asymmetrical LVH. Sheet Cutter measured posterior wall thickness of 12 mm, septal wall thickness of 17 mm. Wall motion analysis is normal. Systolic function is normal. EF estimated about 55%. Diastolic function assessment shows normal E/E' of 7.3. 3. VALVES. Aortic valve exhibits annular calcification. Leaflets appear slightly sclerotic. Preserved valve opening without any significant restriction. Mitral valve exhibits annular calcification, some papillary muscle calcification is also present. Slightly sclerotic mitral valve leaflets , excursion is normal. Tricuspid and pulmonic valves structure and motion appear normal with normal valve excursion. 4. DOPPLER. Moderate mitral regurgitation and trace aortic regurgitation. Severe tricuspid regurgitation. Moderate pulmonic insufficiency. 5. Systolic PA pressure estimated at 77 mmHg per Bernoulli equation with severe pulmonary hypertension. 6. Initial diastolic function assessment. E/A ratio is estimated about 3 suggestive of restrictive pattern although this result is inconsistent with E/E' . IMPRESSION 1. Borderline biatrial enlargement (visually). 2. Asymmetrical LVH without outflow tract obstruction. 3. Normal LV systolic function, EF of 55-60%. 4. Diastolic dysfunction. 5. Moderate mitral regurgitation. 6. Severe tricuspid regurgitation. 7. Moderate pulmonic insufficiency. 8. Trace aortic insufficiency. 9. Severe pulmonary hypertension. 10. Elevated central venous pressure (partial respiratory collapse of IVC). MTDD
[2017-08-27] MEDS: BUDESONIDE INH.SOLN 0.5mg/2ml NEB AEROSOL SCH ×2 (09:20→20:20)
[2017-08-27] MEDS: ALBUTEROL/IPRATROPIUM 2.5mg-0.5mg/3ml NEB AEROSOL SCH ×4 (09:20→20:19)
--- NOTE | 2017-08-27 14:54 | Progress Note ---
- Date 08/27/17 Subjective: Ellen is seen today while watching the [employer] play baseball with family at her bedside. She states that she is feeling better than she did yesterday. She is currently on 4 liters of oxygen by nasal canula. Denies having pain on examination. She reports that her appetite is good. She did get up and ambulate in the room with PT today. Objective Vital signs: Temperature 97.6 F 08/27/17 08:16 Pulse Rate 69 08/27/17 08:16 Respiratory Rate 24 08/27/17 13:30 Blood Pressure 140/61 H 08/27/17 08:16 Pulse Oximetry 97 08/27/17 13:30 Height/Weight/BMI: Height 1.52 m Weight 75.5 kg Body Mass Index 32.4 - Constitutional Present: no acute distress, well nourished, well developed - Routine HEENT Exam Eye: Present: EOMI ENT: Present: mucous membranes moist, dentition normal - Routine Respiratory Exam Present: wheezes Comments: Crackles bilaterally - Routine Cardiovascular Exam Present: RRR, S1, S2. Absent: murmur - Routine Abdominal Exam Present: soft, normoactive bowel sounds, non distended. Absent: tenderness - Routine Extremities Exam Present: edema (trace bilateral lower) - Routine Back/Spine/Pelvis Exam Back/Spine: Present: full ROM - Routine Skin Exam Present: intact, dry, warm - Routine Neurological Exam Present: alert, oriented X3, CN II-XII intact, moving all extremities - Routine Lymphatic Exam Lymphatic: Absent: adenopathy - Routine Psychiatric Exam Present: normal affect Results - Labs CBC & Chem 7: 08/27/17 04:22 08/27/17 04:22 Assessment and Plan Assessment and Plan: Impression Acute respiratory failure with hypoxia- Requiring 5 liters on admission Suspect Acute exacerbation of CHF COPD with acute exacerbation Human metapneumovirus infection Aphasia - Intermittently Severe pulmonary hypertension CAD with Hx [place] Type 2 DM HTN Hyperlipidemia Non-Hodgkin lymphoma Gastroesophageal reflux disease Obesity Chronic tobacco dependency Cardiopulmonary debility Plan Overall making improvements Continue to wean down oxygen as able Scheduled DuoNeb and Pulmicort. Weight unchanged from admission - Continue Bumex. Zoo Keeper remains stable at 1.3. Continue to work with PT/OT for strengthening Lovenox SQ daily for PPX Plans on returning home with DVT Prophylaxis: Lovenox Resuscitation Status: Do Not Resuscitate - Time spent with patient Time with patient PN: 25 minutes - Physician Narrative Physician: Jean Carlos Alvarado MD Narrative: Date: 08/27/17 Time: 1520 Have independently interviewed and examined pt. Chart reviewed. Case discussed with CM and my APNR. Care plan developed with my supervision; agree with above. Doing better today. Not feeling as rough and weak as yesterday. Breathing easier. Able to work with therapy in her room (in resp isolation) - walked back and forth in room several times. Eating well. No ab pain. No chest pain. Lungs: decreased, scattered crackles, less resp distress CV: regular AB: soft nt MSE: awake alert appropriate Plan: Will continue with steroids, Bumex, Neb treatment. Wean O2 as able. Recheck CXR tomorrow. Hospital Course Summary Disclaimer: The visit summary below is not to be considered part of the above Progress Note. Hospital Course: 08/25/17 Admission Initially patient was admitted as outpatient observation however following examination and level of hypoxia will change to inpatient status given that she is requiring 5 liters to maintain oxygen saturations. Further clinical workup on admission- CBC, CMP, Mag, Troponin, UA, Respiratory panel, EKG. Given suspect of fluid overload accompanied with fatigue and dyspnea will obtain ECHO for cardiac evaluation. Serial enzymes and tele. Will need to initiate diuretics once electrolytes and renal function results are reviewed. Suspect fluid overload. Initiate Bumex 1mg IV BID. Obtain Ct head to rule out ischemia given aphasia. Suspect this could be multifactorial- ?hypoxia, ?electrolyte abnormalities. Obtain sputum culture and respiratory panel. Start Neb treatments of DuoNeb QID & prn, Budesonide BID, Solu-Medrol 62.5mg IV q 6hrs, Mucinex DM BID, Nasal Saline QID, and Ricola prn. Consultation to RT for acapella and tobacco cessation consultation. PT/OT consultation for cardiopulmonary debility. Monitor Accu checks. SCD to bilateral lower ext and Lovenox for DVT prophylaxis. Patient does wish to be a DNR and this order is written. At time of discharge medical care is to return to PCP Dr Sapp. 08/26/17 Trop neg x3. Echo pending. Continue diuresis - still requiring 6L O2. Weight essentially unchanged. Start tracking I&O. Renal function stable with BUN 37 and cr 1.3. Tonight will reduce frequency of Solu-Medrol to BID. Cont DuoNeb/Pulmicort, activity as able. Precautions & supportive care for HMV. Head CT negative for acute findings. Hyperglycemia - exacerbated by steroids. Will increase Lantus to 17U and add SSI. Leukopenia - suspect chronic d/t hx NHL. PT/OT consulted. 08/27/17 Overall making improvements Continue to wean down oxygen as able Scheduled DuoNeb and Pulmicort Weight unchanged from admission- Continue Bumex Zoo Keeper remains stable at 1.3. Continue to work with PT/OT for strengthening Lovenox SQ daily for PPX Plans on returning home with
[2017-08-27] MEDS: INSULIN GLARGINE 100unit/ml INJECTION SQ SCH (20:04)
[2017-08-27] MEDS: SALINE FLUSH 10ml SYRINGE IV PRN (20:05)
[2017-08-27] MEDS: SIMVASTATIN 40 MG TABLET PO SCH (20:05)
[2017-08-28] MEDS: LEVOTHYROXINE 100 MCG TABLET PO SCH (05:56)
[2017-08-28] MEDS: OMEPRAZOLE 20 MG CAPSULE PO SCH ×2 (05:56→16:29)
[2017-08-28] MEDS: INSULIN ASPART 100unit/ml INJECTION SQ PRN ×4 (06:00→21:34)
[2017-08-28] MEDS: FERROUS SULFATE 324 MG TABLET PO SCH (08:28)
[2017-08-28] MEDS: GUAIFENESIN/D-METHORPHAN 600mg/30mg TABLET PO SCH ×2 (08:29→21:34)
[2017-08-28] MEDS: ENOXAPARIN 40 MG/0.4 ML INJECTION SQ SCH (08:29)
[2017-08-28] MEDS: CLOPIDOGREL 75 MG TABLET PO SCH (08:29)
[2017-08-28] MEDS: METHYLPREDNISOLONE SOD SUCC 125mg/2ml INJECTION IVP SCH (08:29)
[2017-08-28] MEDS: ISOSORBIDE MONONITRATE ER 30 MG TABLET PO SCH (08:29)
[2017-08-28] MEDS: LISINOPRIL 10 MG TABLET PO SCH (08:29)
[2017-08-28] MEDS: SALINE 0.65% NASAL SPRAY 44 ML BOTTLE EA NOSTRIL SCH ×4 (08:30→21:36)
[2017-08-28] MEDS: SALINE FLUSH 10ml SYRINGE IV PRN ×3 (08:31→14:36)
--- NOTE | 2017-08-28 08:35 | XRay Report ---
INDICATION: F/U PROCEDURE: CHEST 2-VIEWS UPRIGHT (PA & LAT) Encounter: Initial COMPARISON: August 25, 2017 FINDINGS: Increasing interstitial prominence compared to the prior study. Hazy basilar opacities. No pneumothorax or definite effusion. Heart size and mediastinal contours are stable. Pulmonary vascularity is indistinct. Prior CABG. Impression: Increasing pulmonary edema. .
[2017-08-28] MEDS: ALBUTEROL/IPRATROPIUM 2.5mg-0.5mg/3ml NEB AEROSOL SCH ×3 (09:08→17:43)
[2017-08-28] MEDS: BUDESONIDE INH.SOLN 0.5mg/2ml NEB AEROSOL SCH ×2 (09:08→20:08)
--- NOTE | 2017-08-28 12:14 | Progress Note ---
- Date 08/28/17 Subjective: Ellen reports feeling worse today. She woke up with increased achiness/ soreness all over. She feels more short of breath and was wheezing quite a bit earlier this am, which is better now. She denies abdominal pain, n/v but reports a poor appetite. She's also been urinating more frequently since getting an extra dose of Bumex earlier today. Objective Vital signs: Temperature 98.5 F 08/28/17 07:19 Pulse Rate 69 08/28/17 10:29 Respiratory Rate 20 08/28/17 09:09 Blood Pressure 122/51 08/28/17 10:29 Pulse Oximetry 92 08/28/17 09:09 Height/Weight/BMI: Height 1.52 m Weight 75.5 kg Body Mass Index 32.4 - Constitutional Present: mild distress, well nourished, well developed - Routine HEENT Exam Head: Present: normocephalic Eye: Present: PERRL. Absent: conjunctival icterus, scleral injection Comments: voice is hoarse - Routine Respiratory Exam Present: decreased breath sounds, wheezes (rare), crackles (throughout lung ortega) - Routine Cardiovascular Exam Present: S1, S2, rubs - Routine Abdominal Exam Present: soft, normoactive bowel sounds, non distended, non tender - Routine Extremities Exam Present: no edema, pulses intact - Routine Skin Exam Present: intact, dry, warm - Routine Neurological Exam Present: alert, oriented X3, CN II-XII intact, normal speech - Routine Psychiatric Exam Present: normal affect, normal thought process, cooperative Results - Labs CBC & Chem 7: 08/28/17 04:12 08/28/17 04:12 Assessment and Plan Assessment and Plan: Impression Acute respiratory failure with hypoxia- Requiring 5 liters on admission Acute exacerbation of CHF - diastolic/valvular COPD with acute exacerbation Human metapneumovirus infection Aphasia - Intermittently Severe pulmonary hypertension CAD with Hx [place] Type 2 DM HTN Hyperlipidemia Non-Hodgkin lymphoma Gastroesophageal reflux disease Obesity Chronic tobacco dependency Cardiopulmonary debility Plan CXR repeated this am, personally reviewed - increased edema. Additional Bumex was given. Will increase BID bumex to 2 mg. Weight unchanged. Monitor renal function - BUN up to 50, cr stable at 1.3. DC IV steroids; start Prednisone 40 mg in am. Hyperglycemia with sugars consistently >200. Increase Lantus to 20U HS. Hope to see improvement with reduction in steroids. Echo report reviewed: 1. Borderline biatrial enlargement (visually). 2. Asymmetrical LVH without outflow tract obstruction. 3. Normal LV systolic function, EF of 55-60%. 4. Diastolic dysfunction. 5. Moderate mitral regurgitation. 6. Severe tricuspid regurgitation. 7. Moderate pulmonic insufficiency. 8. Trace aortic insufficiency. 9. Severe pulmonary hypertension. 10. Elevated central venous pressure (partial respiratory collapse of IVC). DVT Prophylaxis: Lovenox GI Prophylaxis: other (Prilosec) Resuscitation Status: Do Not Resuscitate - Time spent with patient Time with patient PN: 25 minutes - Physician Narrative Physician: Jean Carlos Alvarado MD Narrative: Date: 08/28/17 Time: 1650 Have independently interviewed and examined pt. Chart reviewed. 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 Care plan developed with my supervision; agree with above. Feeling better this evening than this am. Not as tired and weak. Walked with therapy today-strength slowing improving. Able to get to bathroom easier. Increased cough this morning. Not mobilizing sputum. Notes nasal congestion. Appetite stable. No stool today, but not with ab pain or bloating. Lungs: decreased bilaterally, less crackles. CV: regular AB; soft nt MSE: awake alert Plan: Increase Bumex to 2mg BID to help fluid motivation. Transition solu- medrol to Prednisone. Wean O2 as able; O2 needs decreasing. Pharm to check on home meds - reports using Plavix 75mg BID (also takes ASA 81mg dialy). Aspercreme to neck QID due to tension headache. Encourage continued increasing ambulation. Monitor lab. Hospital Course Summary Disclaimer: The visit summary below is not to be considered part of the above Progress Note. Hospital Course: 08/25/17 Admission Initially patient was admitted as outpatient observation however following examination and level of hypoxia will change to inpatient status given that she is requiring 5 liters to maintain oxygen saturations. Further clinical workup on admission- CBC, CMP, Mag, Troponin, UA, Respiratory panel, EKG. Given suspect of fluid overload accompanied with fatigue and dyspnea will obtain ECHO for cardiac evaluation. Serial enzymes and tele. Will need to initiate diuretics once electrolytes and renal function results are reviewed. Suspect fluid overload. Initiate Bumex 1mg IV BID. Obtain Ct head to rule out ischemia given aphasia. Suspect this could be multifactorial- ?hypoxia, ?electrolyte abnormalities. Obtain sputum culture and respiratory panel. Start Neb treatments of DuoNeb QID & prn, Budesonide BID, Solu-Medrol 62.5mg IV q 6hrs, Mucinex DM BID, Nasal Saline QID, and Ricola prn. Consultation to RT for acapella and tobacco cessation consultation. PT/OT consultation for cardiopulmonary debility. Monitor Accu checks. SCD to bilateral lower ext and Lovenox for DVT prophylaxis. Patient does wish to be a DNR and this order is written. At time of discharge medical care is to return to PCP Dr Sapp. 08/26/17 Trop neg x3. Echo pending. Continue diuresis - still requiring 6L O2. Weight essentially unchanged. Start tracking I&O. Renal function stable with BUN 37 and cr 1.3. Tonight will reduce frequency of Solu-Medrol to BID. Cont DuoNeb/Pulmicort, activity as able. Precautions & supportive care for HMV. Head CT negative for acute findings. Hyperglycemia - exacerbated by steroids. Will increase Lantus to 17U and add SSI. Leukopenia - suspect chronic d/t hx NHL. PT/OT consulted. 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 Continue to work with PT/OT for strengthening Lovenox SQ daily for PPX Plans on returning home with 08/28/17 CXR repeated this am, personally reviewed - increased edema. Additional Bumex was given. Will increase BID Bumex to 2 mg. Weight unchanged. Monitor renal function - BUN up to 50, cr stable at 1.3. DC IV steroids; start Prednisone 40 mg in am. Hyperglycemia with sugars consistently >200. Increase Lantus to 20U HS. Hope to see improvement with reduction in steroids. Echo report reviewed: 1. Borderline biatrial enlargement (visually). 2. Asymmetrical LVH without outflow tract obstruction. 3. Normal LV systolic function, EF of 55-60%. 4. Diastolic dysfunction. 5. Moderate mitral regurgitation. 6. Severe tricuspid regurgitation. 7. Moderate pulmonic insufficiency. 8. Trace aortic insufficiency. 9. Severe pulmonary hypertension. 10. Elevated central venous pressure (partial respiratory collapse of IVC).
[2017-08-28] MEDS ORDERED: INSULIN GLARGINE 100unit/ml INJECTION SQ SCH (13:15)
[2017-08-28] MEDS: INSULIN GLARGINE 100unit/ml INJECTION SQ SCH (21:34)
[2017-08-28] MEDS: SIMVASTATIN 40 MG TABLET PO SCH (21:35)
[2017-08-29] MEDS: OMEPRAZOLE 20 MG CAPSULE PO SCH ×2 (05:30→17:06)
[2017-08-29] MEDS: LEVOTHYROXINE 100 MCG TABLET PO SCH (05:30)
[2017-08-29] MEDS: ALBUTEROL/IPRATROPIUM 2.5mg-0.5mg/3ml NEB AEROSOL SCH ×4 (07:31→19:43)
[2017-08-29] MEDS: BUDESONIDE INH.SOLN 0.5mg/2ml NEB AEROSOL SCH (07:31)
[2017-08-29] MEDS: ENOXAPARIN 40 MG/0.4 ML INJECTION SQ SCH (08:28)
[2017-08-29] MEDS: GUAIFENESIN/D-METHORPHAN 600mg/30mg TABLET PO SCH ×2 (08:28→21:52)
[2017-08-29] MEDS: LISINOPRIL 10 MG TABLET PO SCH (08:29)
[2017-08-29] MEDS: PredniSONE 20 MG TABLET PO SCH (08:29)
[2017-08-29] MEDS: CLOPIDOGREL 75 MG TABLET PO SCH (08:29)
[2017-08-29] MEDS: FERROUS SULFATE 324 MG TABLET PO SCH (08:30)
[2017-08-29] MEDS: ISOSORBIDE MONONITRATE ER 30 MG TABLET PO SCH (08:30)
[2017-08-29] MEDS: ASPIRIN *EC* 81 MG TABLET PO SCH (08:30)
[2017-08-29] MEDS: SALINE 0.65% NASAL SPRAY 44 ML BOTTLE EA NOSTRIL SCH ×4 (08:31→21:57)
--- NOTE | 2017-08-29 11:10 | Progress Note ---
- Date 08/29/17 Subjective: Ellen is not feeling any better compared to yesterday. She has a frequent cough and complains of sinus congestion. She doesn't feel like that. She is able to get any of the nasal cannula oxygen and because of her congestion. She feels "out of the loop" meaning that her thought process seems a little off. Her appetite has been poor and she lacks energy. Objective Vital signs: Temperature 97.6 F 08/29/17 08:16 Pulse Rate 87 08/29/17 08:16 Respiratory Rate 20 08/29/17 08:16 Blood Pressure 146/67 H 08/29/17 08:16 Pulse Oximetry 90 08/29/17 08:16 Height/Weight/BMI: Height 1.52 m Weight 74.5 kg Body Mass Index 32.4 - Constitutional Present: no acute distress, well nourished, well developed - Routine HEENT Exam Head: Present: normocephalic Eye: Present: PERRL. Absent: conjunctival icterus, scleral injection ENT: Present: oropharynx clear - Routine Respiratory Exam Present: decreased breath sounds, crackles (not as pronounced as yesterday) - Routine Cardiovascular Exam Present: RRR, S1, S2 - Routine Abdominal Exam Present: soft, normoactive bowel sounds, non distended, non tender - Routine Extremities Exam Present: no edema - Routine Skin Exam Present: intact, dry, warm - Routine Neurological Exam Present: alert, oriented X3, CN II-XII intact, moving all extremities, vision grossly intact, hearing grossly intact, normal speech. Absent: sensory deficit , motor deficit, altered mental status, facial asymmetry - Routine Psychiatric Exam Present: normal thought process, cooperative. Absent: normal affect (depressed) Results - Labs CBC & Chem 7: 08/29/17 04:35 08/29/17 04:35 Assessment and Plan (1) Acute respiratory failure with hypoxia Current visit: Yes Status: Acute Assessment and Plan: Impression Acute respiratory failure with hypoxia- Requiring 5 liters on admission Acute exacerbation of CHF - diastolic/valvular COPD with acute exacerbation Human metapneumovirus infection Aphasia - Intermittently Severe pulmonary hypertension CAD with Hx ID Type 2 DM HTN Hyperlipidemia Non-Hodgkin lymphoma Gastroesophageal reflux disease Obesity Chronic tobacco dependency Cardiopulmonary debility Plan Bumex dose was increased yesterday because of increased pulmonary edema noted on chest x-ray. She is still requiring 4 L of oxygen. Weight has decreased by 1 kg. Continue with Bumex 2 mg twice a day. Renal function is stable. Start Flonase for sinus congestion. Lantus was increased last night, and so far her blood sugars are better today. Continue prednisone 40 mg daily for COPD exacerbation + DuoNeb and Pulmicort. DVT Prophylaxis: Lovenox GI Prophylaxis: Omeprazole Resuscitation Status: Do Not Resuscitate - Physician Narrative Physician: Shelby Ruffin MD Narrative: Date: 08/29/17 Time: 1814 I have independently evaluated and examined this patient. I reviewed the chart, the patient's history, and the [employer]/PA's documented findings as above. We discussed and formulated the assessment and plan as above with additions as below: Mrs. Pinto describes fatigue due to sleeping poorly, dyspnea is improving but she continues to cough frequently feeling that she needs to clear secretions which she can't cough up. Speech was fluent, patient was cooperative with exam when she was in no acute distress at time of evaluation Respirations nonlabored with good airflow, crackles 1/3 up posterior ortega bilaterally, no wheezing appreciated Blood sugars improved with increased Lantus and conversion from IV steroids to oral prednisone. Short run of wide complex tachycardia early this morning-magnesium being given IV/by mouth and potassium supplement increased. If recurs will consult cardiology. Typically sees Dr. Mendoza. Chest x-ray reviewed-increased vascular markings present yesterday but no evidence of infiltrate. Hospital Course Summary Disclaimer: The visit summary below is not to be considered part of the above Progress Note. Hospital Course: 08/25/17 Admission Initially patient was admitted as outpatient observation however following examination and level of hypoxia will change to inpatient status given that she is requiring 5 liters to maintain oxygen saturations. Further clinical workup on admission- CBC, CMP, Mag, Troponin, UA, Respiratory panel, EKG. Given suspect of fluid overload accompanied with fatigue and dyspnea will obtain ECHO for cardiac evaluation. Serial enzymes and tele. Will need to initiate diuretics once electrolytes and renal function results are reviewed. Suspect fluid overload. Initiate Bumex 1mg IV BID. Obtain Ct head to rule out ischemia given aphasia. Suspect this could be multifactorial- ?hypoxia, ?electrolyte abnormalities. Obtain sputum culture and respiratory panel. Start Neb treatments of DuoNeb QID & prn, Budesonide BID, Solu-Medrol 62.5mg IV q 6hrs, Mucinex DM BID, Nasal Saline QID, and Ricola prn. Consultation to RT for acapella and tobacco cessation consultation. PT/OT consultation for cardiopulmonary debility. Monitor Accu checks. SCD to bilateral lower ext and Lovenox for DVT prophylaxis. Patient does wish to be a DNR and this order is written. At time of discharge medical care is to return to PCP Dr Sapp. 08/26/17 Trop neg x3. Echo pending. Continue diuresis - still requiring 6L O2. Weight essentially unchanged. Start tracking I&O. Renal function stable with BUN 37 and cr 1.3. Tonight will reduce frequency of Solu-Medrol to BID. Cont DuoNeb/Pulmicort, activity as able. Precautions & supportive care for [facility]. Head CT negative for acute findings. Hyperglycemia - exacerbated by steroids. Will increase Lantus to 17U and add SSI. Leukopenia - suspect chronic d/t hx NHL. PT/OT consulted. 08/27/17 Overall making improvements Continue to wean down oxygen as able Scheduled DuoNeb and Pulmicort Weight unchanged from admission- Continue Bumex Rn Cardiac Rehab remains stable at 1.3. Continue to work with PT/OT for strengthening Lovenox SQ daily for PPX Plans on returning home with 08/28/17 CXR repeated this am, personally reviewed - increased edema. Additional Bumex was given. Will increase BID Bumex to 2 mg. Weight unchanged. Monitor renal function - BUN up to 50, cr stable at 1.3. DC IV steroids; start Prednisone 40 mg in am. Hyperglycemia with sugars consistently >200. Increase Lantus to 20U HS. Hope to see improvement with reduction in steroids. Echo report reviewed: 1. Borderline biatrial enlargement (visually). 2. Asymmetrical LVH without outflow tract obstruction. 3. Normal LV systolic function, EF of 55-60%. 4. Diastolic dysfunction. 5. Moderate mitral regurgitation. 6. Severe tricuspid regurgitation. 7. Moderate pulmonic insufficiency. 8. Trace aortic insufficiency. 9. Severe pulmonary hypertension. 10. Elevated central venous pressure (partial respiratory collapse of IVC). 08/29/17 Bumex dose was increased yesterday because of increased pulmonary edema noted on chest x-ray. She is still requiring 4 L of oxygen. Weight has decreased by 1 kg. Continue with Bumex 2 mg twice a day. Renal function is stable. Start Flonase for sinus congestion. Lantus was increased last night, and so far her blood sugars are better today. Continue prednisone 40 mg daily for COPD exacerbation + DuoNeb and Pulmicort.
[2017-08-29] MEDS: FLUTICASONE NASAL SPRAY 50mcg EA NOSTRIL SCH (11:56)
[2017-08-29] MEDS: INSULIN ASPART 100unit/ml INJECTION SQ PRN ×3 (11:56→21:56)
[2017-08-29] MEDS: MAGNESIUM SULFATE 1gm PREMIX 1 GM/100 ML BAG IV SCH ×2 (18:54→21:51)
[2017-08-29] MEDS: MAGNESIUM OXIDE 400 MG TABLET PO SCH (21:52)
[2017-08-29] MEDS: SIMVASTATIN 40 MG TABLET PO SCH (21:52)
[2017-08-29] MEDS: INSULIN GLARGINE 100unit/ml INJECTION SQ SCH (21:56)
[2017-08-30] MEDS: OMEPRAZOLE 20 MG CAPSULE PO SCH ×2 (06:14→17:13)
[2017-08-30] MEDS: LEVOTHYROXINE 100 MCG TABLET PO SCH (06:14)
[2017-08-30] MEDS: ALBUTEROL/IPRATROPIUM 2.5mg-0.5mg/3ml NEB AEROSOL SCH ×4 (07:05→19:37)
[2017-08-30] MEDS: BUDESONIDE INH.SOLN 0.5mg/2ml NEB AEROSOL SCH ×2 (07:05→19:37)
[2017-08-30] MEDS: LISINOPRIL 10 MG TABLET PO SCH (08:57)
[2017-08-30] MEDS: CLOPIDOGREL 75 MG TABLET PO SCH (08:57)
[2017-08-30] MEDS: ASPIRIN *EC* 81 MG TABLET PO SCH (08:57)
[2017-08-30] MEDS: FERROUS SULFATE 324 MG TABLET PO SCH (08:57)
[2017-08-30] MEDS: ISOSORBIDE MONONITRATE ER 30 MG TABLET PO SCH (08:57)
[2017-08-30] MEDS: FLUTICASONE NASAL SPRAY 50mcg EA NOSTRIL SCH ×2 (08:58→21:04)
[2017-08-30] MEDS: MAGNESIUM OXIDE 400 MG TABLET PO SCH ×2 (08:58→21:04)
[2017-08-30] MEDS: GUAIFENESIN/D-METHORPHAN 600mg/30mg TABLET PO SCH ×2 (08:58→21:04)
[2017-08-30] MEDS: PredniSONE 20 MG TABLET PO SCH (08:58)
[2017-08-30] MEDS: ENOXAPARIN 40 MG/0.4 ML INJECTION SQ SCH (08:59)
[2017-08-30] MEDS: SALINE 0.65% NASAL SPRAY 44 ML BOTTLE EA NOSTRIL SCH ×4 (09:00→21:15)
[2017-08-30] MEDS: INSULIN ASPART 100unit/ml INJECTION SQ PRN ×3 (10:25→21:14)
--- NOTE | 2017-08-30 11:40 | Progress Note ---
- Date 08/30/17 Subjective: Ellen is seen this morning while resting in bed, sleeping. She does arouse, however, appears fatigued today and falls back asleep during conversation. He reports feeling "worn out". She continues to require 4 liters of oxygen by nasal cannula to maintain saturations over 90%. He does report having small amount of lower back pain that she attributes to being constipated. She did eat 100% of breakfast this morning. Denies chest pain, shortness of breath, abdominal pain or nausea. Objective Vital signs: Temperature 97.6 F 08/30/17 07:00 Pulse Rate 72 08/30/17 08:00 Respiratory Rate 18 08/30/17 10:42 Blood Pressure 127/66 08/30/17 07:00 Pulse Oximetry 90 08/30/17 10:42 Height/Weight/BMI: Height 1.52 m Weight 73.7 kg Body Mass Index 32.4 - Constitutional Present: mild distress, well nourished, well developed - Routine HEENT Exam Eye: Present: EOMI ENT: Present: mucous membranes moist, dentition normal - Routine Respiratory Exam Present: crackles. Absent: wheezes - Routine Cardiovascular Exam Present: RRR, S1, S2. Absent: murmur - Routine Abdominal Exam Present: soft, normoactive bowel sounds, non distended. Absent: tenderness - Routine Extremities Exam Present: normal capillary refill - Routine Skin Exam Present: intact, dry, warm - Routine Neurological Exam Present: alert, oriented X3, CN II-XII intact, moving all extremities - Routine Lymphatic Exam Lymphatic: Absent: adenopathy - Routine Psychiatric Exam Present: normal affect, cooperative Results - Labs CBC & Chem 7: 08/30/17 04:45 08/30/17 04:45 Assessment and Plan (1) Acute respiratory failure with hypoxia Current visit: Yes Status: Acute Assessment and Plan: Impression Acute respiratory failure with hypoxia- Requiring 5 liters on admission Acute exacerbation of CHF - diastolic/valvular COPD with acute exacerbation Human metapneumovirus infection Aphasia - Intermittently Severe pulmonary hypertension CAD with Hx NC Type 2 DM HTN Hyperlipidemia Non-Hodgkin lymphoma Gastroesophageal reflux disease Obesity Chronic tobacco dependency Cardiopulmonary debility Plan Continues to require 4 liters of oxygen Continue with Duoneb and Pulmicort Prednisone 40 mg daily for pulmonary inflammation Continue with Bumex 2 milligrams twice a day for ongoing diuresis seen. Overall blood sugars have been well controlled. Magnesium elevated at 2.4. (She did receive IV and oral magnesium supplementation yesterday. Will continue to monitor routine labs Lovenox subcutaneous daily for DVT prophylaxis Once more medically stable. Would encourage PT and OT for strengthening DVT Prophylaxis: Lovenox GI Prophylaxis: Omeprazole Resuscitation Status: Do Not Resuscitate - Physician Narrative Physician: Shelby Ruffin MD Narrative: Date: 08/30/17 Time: 1624 I have independently evaluated and examined this patient. I reviewed the chart, the patient's history, and the [employer]/PA's documented findings as above. We discussed and formulated the assessment and plan as above with additions as below: Mrs. Pinto reports that she "feels like crap in the morning" but gets progressively better as the day goes on. She's had increased nasal drainage today which is helped her breathe more comfortably and oxygen has been titrated to 2 L with saturations of 92%. She has not previously required home oxygen but is also into considering it if it will allow her to go home sooner. Cough persists but no sputum production. Respirations nonlabored with good airflow, no wheezing but crackles remain present posteriorly about a third of the way up the lung ortega No lower extremity edema Repeat chest x-ray in a.m., check proBNP with morning labs. Telemetry strips reviewed by myself-sinus rhythm/sinus arrhythmia but no recurrent wide complex tachycardia. Given ongoing diuresis will give supplemental dose of potassium today in addition to the previously scheduled doses. Ambulatory oximetry in the morning with repeat chest x-ray. At present it appears she'll require oxygen at discharge but given underlying COPD should qualify. Hospital Course Summary Disclaimer: The visit summary below is not to be considered part of the above Progress Note. Hospital Course: 08/25/17 Admission Initially patient was admitted as outpatient observation however following examination and level of hypoxia will change to inpatient status given that she is requiring 5 liters to maintain oxygen saturations. Further clinical workup on admission- CBC, CMP, Mag, Troponin, UA, Respiratory panel, EKG. Given suspect of fluid overload accompanied with fatigue and dyspnea will obtain ECHO for cardiac evaluation. Serial enzymes and tele. Will need to initiate diuretics once electrolytes and renal function results are reviewed. Suspect fluid overload. Initiate Bumex 1mg IV BID. Obtain Ct head to rule out ischemia given aphasia. Suspect this could be multifactorial- ?hypoxia, ?electrolyte abnormalities. Obtain sputum culture and respiratory panel. Start Neb treatments of DuoNeb QID & prn, Budesonide BID, Solu-Medrol 62.5mg IV q 6hrs, Mucinex DM BID, Nasal Saline QID, and Ricola prn. Consultation to RT for acapella and tobacco cessation consultation. PT/OT consultation for cardiopulmonary debility. Monitor Accu checks. SCD to bilateral lower ext and Lovenox for DVT prophylaxis. Patient does wish to be a DNR and this order is written. At time of discharge medical care is to return to PCP Dr Sapp. 08/26/17 Trop neg x3. Echo pending. Continue diuresis - still requiring 6L O2. Weight essentially unchanged. Start tracking I&O. Renal function stable with BUN 37 and cr 1.3. Tonight will reduce frequency of Solu-Medrol to BID. Cont DuoNeb/Pulmicort, activity as able. Precautions & supportive care for [facility]. Head CT negative for acute findings. Hyperglycemia - exacerbated by steroids. Will increase Lantus to 17U and add SSI. Leukopenia - suspect chronic d/t hx NHL. PT/OT consulted. 08/27/17 Overall making improvements Continue to wean down oxygen as able Scheduled DuoNeb and Pulmicort Weight unchanged from admission- Continue Bumex [employer] remains stable at 1.3. Continue to work with PT/OT for strengthening Lovenox SQ daily for PPX Plans on returning home with 08/28/17 CXR repeated this am, personally reviewed - increased edema. Additional Bumex was given. Will increase BID Bumex to 2 mg. Weight unchanged. Monitor renal function - BUN up to 50, cr stable at 1.3. DC IV steroids; start Prednisone 40 mg in am. Hyperglycemia with sugars consistently >200. Increase Lantus to 20U HS. Hope to see improvement with reduction in steroids. Echo report reviewed: 1. Borderline biatrial enlargement (visually). 2. Asymmetrical LVH without outflow tract obstruction. 3. Normal LV systolic function, EF of 55-60%. 4. Diastolic dysfunction. 5. Moderate mitral regurgitation. 6. Severe tricuspid regurgitation. 7. Moderate pulmonic insufficiency. 8. Trace aortic insufficiency. 9. Severe pulmonary hypertension. 10. Elevated central venous pressure (partial respiratory collapse of IVC). 08/29/17 Bumex dose was increased yesterday because of increased pulmonary edema noted on chest x-ray. She is still requiring 4 L of oxygen. Weight has decreased by 1 kg. Continue with Bumex 2 mg twice a day. Renal function is stable. Start Flonase for sinus congestion. Lantus was increased last night, and so far her blood sugars are better today. Continue prednisone 40 mg daily for COPD exacerbation + DuoNeb and Pulmicort. 08/30/17 Continues to require 4 liters of oxygen. Duoneb,Pulmicort and PO prednisone. Bumex 2 milligrams twice a day for ongoing diuresis seen. Overall blood sugars have been well controlled. Magnesium elevated at 2.4. (She did receive IV and oral magnesium supplementation yesterday. Once more medically stable. Would encourage PT and OT for strengthening
[2017-08-30] MEDS: SIMVASTATIN 40 MG TABLET PO SCH (21:04)
[2017-08-30] MEDS: INSULIN GLARGINE 100unit/ml INJECTION SQ SCH (21:04)
[2017-08-31] MEDS: LEVOTHYROXINE 100 MCG TABLET PO SCH (05:41)
[2017-08-31] MEDS: OMEPRAZOLE 20 MG CAPSULE PO SCH ×2 (05:41→17:10)
[2017-08-31] MEDS: BUDESONIDE INH.SOLN 0.5mg/2ml NEB AEROSOL SCH ×2 (06:28→07:29)
[2017-08-31] MEDS: ALBUTEROL/IPRATROPIUM 2.5mg-0.5mg/3ml NEB AEROSOL SCH ×2 (07:29→13:26)
[2017-08-31] MEDS: FERROUS SULFATE 324 MG TABLET PO SCH (08:35)
[2017-08-31] MEDS: MAGNESIUM OXIDE 400 MG TABLET PO SCH (08:35)
[2017-08-31] MEDS: CLOPIDOGREL 75 MG TABLET PO SCH (08:35)
[2017-08-31] MEDS: ENOXAPARIN 40 MG/0.4 ML INJECTION SQ SCH (08:35)
[2017-08-31] MEDS: PredniSONE 20 MG TABLET PO SCH (08:35)
[2017-08-31] MEDS: ASPIRIN *EC* 81 MG TABLET PO SCH (08:35)
[2017-08-31] MEDS: LISINOPRIL 10 MG TABLET PO SCH (08:35)
[2017-08-31] MEDS: FLUTICASONE NASAL SPRAY 50mcg EA NOSTRIL SCH (08:36)
[2017-08-31] MEDS: GUAIFENESIN/D-METHORPHAN 600mg/30mg TABLET PO SCH (08:37)
[2017-08-31] MEDS: ISOSORBIDE MONONITRATE ER 30 MG TABLET PO SCH (08:37)
[2017-08-31] MEDS: SALINE 0.65% NASAL SPRAY 44 ML BOTTLE EA NOSTRIL SCH ×3 (08:37→17:10)
[2017-08-31 08:44] VITALS: BP 133/78; TEMP 95.4
[2017-08-31] MEDS: INSULIN ASPART 100unit/ml INJECTION SQ PRN ×2 (10:49→14:01)
--- NOTE | 2017-08-31 10:51 | XRay Report ---
INDICATION: CHF, COPD exac PROCEDURE: CHEST 2-VIEWS UPRIGHT (PA & LAT) Encounter: Initial COMPARISON: August 28, 2017 FINDINGS: Interstitial prominence is grossly stable. No new or worsening consolidation. No pneumothorax or pleural effusion. Cardiomediastinal contours and pulmonary vascularity are unchanged. Prior CABG. Impression: No change. .
[2017-08-31 13:13] VITALS: PULSE 72
[2017-08-31 13:30] VITALS: RESP 16
[2017-08-31 13:31] VITALS: O2SAT 92
--- NOTE | 2017-08-31 19:25 | Discharge Summary ---
Discharge Information Date of admission: 08/25/17 14:20 Anticipated date of discharge: 08/31/17 Attending Physician: Shelby Ruffin MD Primary care physician: Medhat Sapp, DO - Discharge Diagnosis (1) Acute respiratory failure with hypoxia Status: Acute Acute respiratory failure with hypoxia COPD with acute exacerbation Acute on chronic exacerbation of CHF - diastolic/valvular Human metapneumovirus infection Severe pulmonary hypertension CAD with Hx [place] Type 2 DM HTN Hyperlipidemia Non-Hodgkin lymphoma Gastroesophageal reflux disease Obesity Chronic tobacco dependency Cardiopulmonary debility - Procedures Procedures: Echocardiogram on 08/26/17: 1. Borderline biatrial enlargement (visually). 2. Asymmetrical LVH without outflow tract obstruction. 3. Normal LV systolic function, EF of 55-60%. 4. Diastolic dysfunction. 5. Moderate mitral regurgitation. 6. Severe tricuspid regurgitation. 7. Moderate pulmonic insufficiency. 8. Trace aortic insufficiency. 9. Severe pulmonary hypertension. 10. Elevated central venous pressure (partial respiratory collapse of IVC). Ambulatory oximetry on room air on 08/31/17: Room air saturation at rest 92%, patient ambulated 370 feet with oxygen dropping to 88% with ambulation. Returned to 90% with rest. - Laboratory Labs: On admission (08/25/17) white count 4.0, hemoglobin 12.8, platelet count 132; electrolytes unremarkable, BUN 33, creatinine 1.4, liver enzymes unremarkable. TSH 1.54 on 08/26/17 Respiratory viral panel positive for Human Metapneumovirus 08/31/17 04:18 08/31/17 04:18 - Radiology Radiology: CT head without contrast on 08/25/17: There is mild prominence of the ventricles and sulci compatible with cortical atrophy. There is no mass, mass effect, or midline shift. No evidence for intracranial hemorrhage. No intra or extra-axial fluid collections. No evidence for depressed skull fracture. The included portions of the sinuses are clear. IMPRESSION: Mild cortical atrophy. No evidence for acute cortical infarct, intracranial hemorrhage, or mass. ------ Chest x-ray on 08/28/17 compared to film obtained 08/25 demonstrated increasing pulmonary edema. ------ Chest x-ray on 08/31/17 was read as grossly unchanged from prior film. No pleural effusions evident to my eye. History of Present Illness HPI: Ellen is a 77 yr old female who presented to see her PCP Dr Sapp today for evaluation on chronic back pain. At time of office visit she was found to be hypoxic at 81%. Chest X-ray was obtained that did not show acute infiltrates. Lumbar back xray shows moderate DDD otherwise unremarkable. Given hypoxia the hospitalists service was contacted and accepted patient for observation for further evaluation and treatment. Ellen is seen and examined at time of admission to the medical unit. She is placed on room air on arrival and found to be hypoxic at 85%. Oxygen is titrated up and she requires 5 liters to maintain saturations over 90%. Detailed history taken revels that she has been more fatigued over the past 2-3 weeks. She reports she is unable to get around due to the fatigue as well as shortness of breath. She indicates that during this time she has difficulty finding her words and describes aphasia. She also reports she has not been taking her "water pill" because she does not have the energy to ambulate to the bathroom. She is smoking less over the past few week also due to lack of motivations. Objective Vital signs: Temperature 95.4 F L 08/31/17 08:00 Pulse Rate 72 08/31/17 11:45 Respiratory Rate 16 08/31/17 13:27 Blood Pressure 133/78 08/31/17 08:00 Pulse Oximetry 92-RA 08/31/17 13:30 Weight 72.9 kg, down 2.5 kg from admission NAD, alert Oropharynx clear Respirations nonlabored at rest, decreased airflow throughout, breath sounds clear-no wheezing present, crackles present at the bases Trace edema right lower extremity, no edema left lower extremity Rhythm: Normal Sinus Rhythm Height/Weight/BMI: Height 1.52 m Weight 72.9 kg Body Mass Index 32.4 Hospital Course This is a general summary of the patient's hospital course. For more details refer to the complete medical record. Hospital course: 08/25/17 Admission Initially patient was admitted as inpatient due to level of hypoxia and need for 5 liters to maintain oxygen saturations. Given suspect of fluid overload accompanied with fatigue and dyspnea will obtain ECHO for cardiac evaluation. Troponins on admission unremarkable as was EKG. Will need to initiate diuretics once electrolytes and renal function results are reviewed. Suspect fluid overload. Initiate Bumex 1mg IV BID. Obtain Ct head to rule out ischemia given aphasia. Suspect this could be multifactorial- ?hypoxia, ?electrolyte abnormalities. Obtain sputum culture and respiratory panel. Start Neb treatments of DuoNeb QID & prn, Budesonide BID, Solu-Medrol 62.5mg IV q 6hrs, Mucinex DM BID, Nasal Saline QID, and Ricola prn. Consultation to RT for acapella and tobacco cessation consultation. PT/OT consultation for cardiopulmonary debility. Monitor Accu checks. SCD to bilateral lower ext and Lovenox for DVT prophylaxis. Patient does wish to be a DNR and this order is written. At time of discharge medical care is to return to PCP Dr Sapp. 08/26/17 Trop neg x3. Continue diuresis - still requiring 6L O2. Weight essentially unchanged. Start tracking I&O. Renal function stable with BUN 37 and cr 1.3. Tonight will reduce frequency of Solu-Medrol to BID. Cont DuoNeb/Pulmicort, activity as able. Precautions & supportive care for HMPV. Head CT negative for acute findings. Hyperglycemia - exacerbated by steroids. Will increase Lantus to 17U and add SSI. Leukopenia - suspect chronic d/t hx NHL or viral URI. 08/27/17 Overall making improvements Continue to wean down oxygen as able Scheduled DuoNeb and Pulmicort Weight unchanged from admission- Continue Bumex Cr remains stable at 1.3. Continue to work with PT/OT for strengthening Lovenox SQ daily for PPX Plans on returning home with 08/28/17 CXR repeated this am, personally reviewed - increased edema. Additional Bumex was given. Will increase BID Bumex to 2 mg. Weight unchanged. Monitor renal function - BUN up to 50, cr stable at 1.3. DC IV steroids; start Prednisone 40 mg in am. Hyperglycemia with sugars consistently >200. Increase Lantus to 20U HS. Hope to see improvement with reduction in steroids. Echocardiogram consistent with diastolic dysfunction due to valvular disease and pulmonary hypertension. 08/29/17 Bumex dose was increased yesterday because of increased pulmonary edema noted on chest x-ray. She is still requiring 4 L of oxygen. Weight has decreased by 1 kg. Continue with Bumex 2 mg twice a day. Renal function is stable. Start Flonase for sinus congestion. Lantus was increased last night, and so far her blood sugars are better today. Continue prednisone 40 mg daily for COPD exacerbation + DuoNeb and Pulmicort. Short run of wide-complex tachycardia early in the morning (7-8 beats), slightly irregular. Magnesium low-replaced and potassium supplement increased for potassium of 3.8 08/30/17 Oxygen titrated to 2 L. Duoneb,Pulmicort and PO prednisone. Bumex 2 milligrams twice a day for ongoing diuresis seen. Overall blood sugars have been well controlled. Magnesium elevated at 2.4. (She did receive IV and oral magnesium supplementation yesterday. Once more medically stable. Would encourage PT and OT for strengthening. No recurrent arrhythmias. Persistent crackles on examination, poor air flow in general. 08/31/17-discharge Mrs. Pinto reports she no longer feels dyspneic although continues to have a nonproductive cough. She denies ongoing sinus drainage and feels that she is breathing through her nose much more effectively today. She denies palpitations or nausea. Examination reveals no wheezing and only basilar crackles compared to crackles 1/3 up posterior ortega prior days. Weight is down a little more than 5 pounds since admission and currently below her reported "normal" weight of 170 pounds. She is titrated to room air at rest and with activity desaturate slightly but will benefit from home oxygen. I suspect she has chronic need for oxygen at night based on underlying COPD and chronic CHF/valvular heart disease. 1 L home oxygen has been initiated and I will recommend that a nocturnal oximetry be obtained in a 1-2 weeks to better quantify oxygen requirement. Chest x-ray looks improved from a vascular perspective to my eye although central vessels are prominent however radiology has read it is unchanged. Difficulty the patient had with word searching on admission resolved after the first day or 2 during the hospitalization and speech was fluent at discharge. Medications were reviewed with the patient in detail. She has been modestly hyperglycemic with steroids and instructions were provided for corrective insulin if sugars are above 200. Patient reports that she chronically takes Plavix twice daily and medication list was altered to reflect this dosing. I've asked that she follow-up with cardiology to reassess medications. She will resume Bumex 1 mg daily as she is below baseline weight and oxygenation is significantly improved. Due to chronic lung disease a nebulizer with unit dose albuterol has been prescribed in conjunction with short course of prednisone for acute exacerbation triggered by viral bronchitis. Patient is asked to follow-up with Dr. Sapp within 1 week for reassessment. Time spent with patient: discharge greater than 30 minutes Resuscitation Status: Do Not Resuscitate Discharge Plan - Discharge Disposition Discharge Date: 08/31/17 Disposition: 01 Discharged Home, Self-Care *Condition: Stable Reason For Visit (Visit label in EMR): hypoxia EXAC of COPD - Discharge Medications *Discharge Medications: New Aspirin *EC* [Ecotrin] 81 mg PO DAILY tab Fluticasone Nasal [place] [Flonase] 2 spray EA NOSTRIL BID bottle Insulin Glargine,Hum.rec.anlog [Lantus] 15 unit SQ HS vial Magnesium Oxide [Magox] 400 mg PO BID tab Nystatin Powder [Mycostatin] 1 applicatio TP TID #0 bottle Sodium Chloride [Deep Sea] 2 spray EA NOSTRIL QID spray Trolamine Salicylate 10% Cream [Aspercreme] 1 applicatio TOP QID tube Guaifenesin/Dm [Mucinex Dm] 1 tab PO BID PRN #30 tab PRN Reason: Congestion Albuterol Neb (0.083%) [Proventil Neb (0.083%)] 2.5 mg AEROSOL Q4H PRN #50 vial PRN Reason: Shortness Of Air/Wheezing predniSONE [Prednisone] 10 mg PO DAILY #30 tab Continue Ferrous Sulfate 325 mg PO DAILY Simvastatin [Zocor] 40 mg PO DAILY Humalog KwikPen (insulin lispro) 100 unit/mL SQ PEN 5 units SQ WM 90 Days #15 lisinopril 10 mg tablet 1 tab PO DAILY 90 Days #180 isosorbide mononitrate ER 30 mg tablet,extended release 24 hr 1 tab PO DAILY 90 Days #90 Nitrostat (nitroglycerin) 0.4 mg sublingual tablet 1 tab SL PRN PRN 6 Days # 25 PRN Reason: Chest Pain Klor-Con Sprinkle (potassium chloride ER) 10 mEq capsule 10 meq PO DAILY #90 cap Lopressor (metoprolol tartrate) 50 mg tablet 50 mg PO BID #180 tab bumetanide 1 mg tablet 1 mg PO DAILY #90 tab levothyroxine 100 mcg tablet 100 mcg PO DAILY #30 tab Prilosec (Omeprazole) 20 mg capsule,delayed release 20 mg PO BID #60 cap Changed Clopidogrel Bisulfate [Clopidogrel] 75 mg PO BID 90 Days #90 - Discharge Packet/Instructions *Diet: Diabetic *Activity: As tolerate, wear 1 L oxygen when walking or moving around *Pain Management/Treatment: Tylenol as needed; continue Aspercreme up to 4 times daily to your shoulder as needed *Wound Care: Not applicable Additional Instructions: -Monitor blood sugars 4 times daily; you will run high while on prednisone. Blood sugar is above 200-250 take 3 units Humalog, if 251- 300 take 5 units Humalog, and if 301-400 take 8 units Humalog. If you regularly need extra doses of Humalog talk to Dr. Sapp about changing scheduled insulin doses. -Prednisone dose as follows: starting tomorrow morning take 30 mg (3-10 mg tablets) daily for 5 days, then decrease to 20 mg for 5 days, then 10 mg daily. -Continue albuterol with nebulizer or MDI every 4 hours as needed for shortness of breath or wheezing. I expect you will need it fairy regularly initially (have been getting treatments 4 x daily in the hospital) initally but will be able to decrease use progressively over the next 1-2 weeks. -You can by nystanin powder (Mycostatin), fluticasone nasal spray (Floanase), Baxter spray , Aspercreme, and Mucinex over the counter. -Continue heart medications as previously prescribed. Discuss using Plavix and omeprazole with Dr. Mendoza when you see him; he may prefer that you take a different stomach medication. -Talk to Dr. Sapp about having a study to check your oxygen level at night done at home in a couple weeks. -Good luck stoping smoking - script for nicotine lozenges provided. *Expected Signs/Symptoms: Shortness of breath with activities, persistent cough- may linger for another 1-2 weeks, sinus congestion/drainage. *Notify Physician if: You have frequent chest pain, your breathing is worse, you pass out, or blood sugars are frequently above 300. *During Business Hours Contact: Dr. Sapp's office *After Business Hours Contact: Call [facility] at [phone] and ask that the on-call physician be paged for Dr. Sapp *Pending Lab/Results: No Pending Lab - Referrals/Follow Up *Referrals/Follow Up: Medhat Sapp DO [Primary Care Provider] - 1 Week - Patient Handouts Patient Handouts: COPD (Chronic Obstructive Pulmonary Disease) (GEN) - Dismissal Complete Discharge Instructions are:: Complete Physician Narrative - Narrative Attestation Narrative: Date: 08/31/17 Time: 1919
== END 2017-08-31 17:10 | disposition home or self-care (01) | DRG 190 ==
LOC: MED → SUATTDRO 14:20
PROVIDERS: ADMIT Hospitalist; ATTEND Internal Medicine